=== PATIENT | female | born 1960 | race American Indian/Alaskan Native ===

== ENCOUNTER 2017-05-15 20:05 | Emergency (ER) | payer BC, OTHER ==
[2017-05-15 22:42] VITALS: BP 178/98
[2017-05-16] MEDS ORDERED: NORCO 5/325 PO ONE (03:35)
[2017-05-16] MEDS ORDERED: BOOSTRIX IM ONE (03:37)
--- NOTE | 2017-05-16 03:39 | Emergency Department Report ---
- General Chief Complaint: Wound/Laceration Stated Complaint: RIGHT MID FINGER LACERATION Time Seen by Provider: 05/16/17 03:27 Source: patient Mode of arrival: Ambulatory Limitations: No Limitations - History of Present Illness Initial Comments: 57-year-old -Wel[place] female with a past medical history of diabetes comes in today for a right finger cut. Patient reports that she fail and she thinks she cut her finger on a brick. Patient does not know when the last time she had a tetanus. Currently takes medication for diabetes has no known drug allergies. -: hour(s) (7) Time: 19:00 Extremity Location: Right: Hand (third finger) Place: home Patient Tetanus UTD: No Context: accidental Associated Symptoms: none Treatments Prior to Arrival: bandage - Related Data Home Medications Medication Instructions Recorded Confirmed Last Taken Amlodipine Besylate [Norvasc] 10 mg PO DAILY 02/08/15 02/08/15 02/07/15 Dapagliflozin Propanediol [Farxiga] 5 mg PO DAILY 02/08/15 02/08/15 02/07/15 Losartan/Hydrochlorothiazide 1 tab PO DAILY 02/08/15 02/08/15 02/07/15 [Hyzaar 100-25 TAB] Sulfamethoxazole/Trimethoprim 1 each PO BID 02/08/15 02/08/15 02/07/15 [Bactrim DS TAB] metFORMIN [Glucophage] 850 mg PO BID 02/08/15 02/08/15 02/07/15 Previous Rx's Medication Instructions Recorded Last Taken Type Ibuprofen [Motrin 800 MG tab] 800 mg PO Q8HR PRN #15 tablet 05/16/17 Unknown Rx Allergies Allergy/AdvReac Type Severity Reaction Status Date / Time No Known Allergies Allergy Verified 03/30/16 18:05 ED Review of Systems ROS: Stated complaint: RIGHT MID FINGER LACERATION Other details as noted in HPI Constitutional: denies: chills, fever Eyes: denies: eye pain, eye discharge, vision change ENT: denies: ear pain, throat pain Respiratory: denies: cough, shortness of breath, wheezing Cardiovascular: denies: chest pain, palpitations Endocrine: no symptoms reported Gastrointestinal: denies: abdominal pain, nausea, diarrhea Genitourinary: denies: urgency, dysuria, discharge Musculoskeletal: denies: back pain, joint swelling, arthralgia Skin: as per HPI, other (cut to right middle finger) Neurological: denies: headache, weakness, paresthesias Psychiatric: denies: anxiety, depression Hematological/Lymphatic: denies: easy bleeding, easy bruising ED Past Medical Hx - Past Medical History Hx Hypertension: Yes Hx Diabetes: Yes - Social History Smoking Status: Never Smoker Substance Use Type: None - Medications Home Medications: Home Medications Medication Instructions Recorded Confirmed Last Taken Type Amlodipine Besylate [Norvasc] 10 mg PO DAILY 02/08/15 02/08/15 02/07/15 History Dapagliflozin Propanediol [Farxiga] 5 mg PO DAILY 02/08/15 02/08/15 02/07/15 History Losartan/Hydrochlorothiazide 1 tab PO DAILY 02/08/15 02/08/15 02/07/15 History [Hyzaar 100-25 TAB] Sulfamethoxazole/Trimethoprim 1 each PO BID 02/08/15 02/08/15 02/07/15 History [Bactrim DS TAB] metFORMIN [Glucophage] 850 mg PO BID 02/08/15 02/08/15 02/07/15 History Ibuprofen [Motrin 800 MG tab] 800 mg PO Q8HR PRN #15 tablet 05/16/17 Unknown Rx ED Physical Exam - General Limitations: No Limitations ED Course Vital Signs 05/15/17 22:39 Temperature 98.1 F Pulse Rate 82 Respiratory 18 Rate Blood Pressure 178/98 O2 Sat by Pulse 98 Oximetry ED Medical Decision Making - Medical Decision Making Patient's been evaluated by this provider fast track. I discussed the patient that the cut will not require sutures. Discussed the patient that it is a flap very little connection to the blood supply. I discussed the patient will clean it off we will not cut the flap placed a Band-Aid. She can take pain medication and use Neosporin to the finger twice a day. Follow up with her primary care provider is symptoms persist or gets worse patient verbalized understanding. Critical care attestation.: If time is entered above; I have spent that time in minutes in the direct care of this critically ill patient, excluding procedure time. ED Disposition Clinical Impression: Cut of finger Disposition: DC-01 TO HOME OR SELFCARE Is pt being admited?: No Does the pt Need Aspirin: No Condition: Stable Additional Instructions: Please keep finger clean and dry. He can apply [id number] Neosporin twice a day. You can take ibuprofen for pain. Please follow up with her primary care provider if symptoms persist or gets worse. Prescriptions: Ibuprofen [Motrin 800 MG tab] 800 mg PO Q8HR PRN #15 tablet PRN Reason: Pain Referrals: PRIMARY CARE,MD [Primary Care Provider] - 3-5 Days Forms: Work/School Release Form(ED), Accompanied Note
[2017-05-16] MEDS ORDERED: MOTRIN PO ONE ×2 (04:00→04:16)
[2017-05-16] MEDS ORDERED: TRIPLE ANTIBIOTIC TP ONE ×2 (04:00→04:05)
== END 2017-05-16 04:15 | disposition home or self-care (01) ==
LOC: ED 20:05
DX: S61.212A Laceration without foreign body of right middle finger without damage to nail, initial encounter (principal); E11.9 Type 2 diabetes mellitus without complications; I10 Essential (primary) hypertension; W45.8XXA Other foreign body or object entering through skin, initial encounter; Y93.89 Activity, other specified; Y92.098 Other place in other non-institutional residence as the place of occurrence of the external cause; Y99.8 Other external cause status
CPT/HCPCS: 90471; 90715; 99282; A6250

== ENCOUNTER 2020-03-10 07:29 | Emergency (ER) | payer BC, OTHER ==
--- NOTE | 2020-03-10 08:12 | Event Note ---
ED Screening Note ED Screening Note: dm htn hld obese co r chest and r scapula pain pain not worse w movement small rash mid breast - does not appear to be herpetic in nature itching r scapular area- dark area of skin with no blisters no sob no fever or chills no acs hx bp elevated bg ordered - off her weekly insulin This initial assessment/diagnostic orders/clinical plan/treatment(s) is/are subject to change based on patients health status, clinical progression and re- assessment by fellow clinical providers in the ED. Further treatment and workup at subsequent clinical providers discretion. Patient/guardian urged not to elope from the ED as their condition may be serious if not clinically assessed and managed. Initial orders include: ro atypical acs presentation
--- NOTE | 2020-03-10 09:02 | XRay Report ---
XR chest routine 2V INDICATION / CLINICAL INFORMATION: chest pain. COMPARISON: None available. FINDINGS: SUPPORT DEVICES: None. HEART /PULMONARY VASCULATURE: No significant abnormality. LUNGS / PLEURA: No significant pulmonary or pleural abnormality. No pneumothorax. ADDITIONAL FINDINGS: No significant additional findings. IMPRESSION: 1. No acute findings. Signer Name: Tim Reyes MD Signed: 03/10/2020 8:58 AM Workstation Name: [id number]
[2020-03-10 09:03] LABS: Hematocrit 43.4 % (30.3-42.9); Hemoglobin 14.6 gm/dl (10.1-14.3); Mean Corpuscular HGB Conc 34 % (30-34); Mean Corpuscular Volume 87 fl (79-97); Platelet Count 267 K/mm3 (140-440); Red Blood Count 4.98 M/mm3 (3.65-5.03); Red Cell Distribution Width 13.1 % (13.2-15.2)
[2020-03-10 09:28] LABS: BUN/Creatinine Ratio 21; Blood Urea Nitrogen 19 mg/dL (7-17); Calcium 9.6 mg/dL (8.4-10.2); Hemolysis Index 25
--- NOTE | 2020-03-10 09:43 | Emergency Department Report ---
ED General Adult HPI - General Chief complaint: Back Pain/Injury Stated complaint: BACK PAIN PUI?: No Time Seen by Provider: 03/10/20 08:06 Source: patient, RN notes reviewed Mode of arrival: Ambulatory Limitations: No Limitations - History of Present Illness Initial comments: The patient was evaluated in the emergency department for symptoms described in the history of present illness. He/she was evaluated in the context of the global COVID-19 pandemic, which necessitated consideration that the patient might be at risk for infection with the virus that causes COVID-19. Institutional protocols and algorithms that pertain to the evaluation of patients at risk for COVID-19 are in a state of rapid change based on informat ion released by regulatory bodies including the CDC and federal and state organizations. These policies and algorithms were followed during the patient's care in the emergency department. Please note that these policies, procedures and recommendations changed on a rapid basis. During the history and physical examination, I am chaperoned by Anayeli Amor Patient is a 60-year-old female. She is not known to myself previously. She is right-hand dominant, with a history of hypertension, diabetes, and obesity. She has no personal or family history of DVT, pulmonary embolism, or ischemic heart disease. She presents to the ER today with a complaint of nontraumatic right-sided posterior scapular pain, present for the past few days. This pain does not radiate anywhere. it does not have exacerbating or relieving factors. Minimal improvement with rufd-jqn-funalxn analgesics. Patient also describes nontraumatic right-sided chest wall and breast pain. This pain has been present for the past few days. It does not radiate anywhere. There is no vomiting, diaphoresis or exertional shortness of breath. The patient denies travel, surgery, DVT, pulmonary embolism risk factors, oral contraceptive use. Patient also describes intermittent erythematous/red rash to her right Medial superior breast. This is new. This has been present for a few days. No oral discomfort, vaginal discomfort, rectal discomfort, no other skin lesions or skin rashes, although she thinks that previously, she had some "red spots" on her back. Patient states that she is not , and denies indwelling tampon. -: Gradual, days(s) Location: chest, back, right Radiation: non-radiation Severity scale (0 -10): 7 Quality: aching Consistency: intermittent Improves with: none Worsens with: none Associated Symptoms: denies other symptoms - Related Data Home Medications Medication Instructions Recorded Confirmed Last Taken Amlodipine Besylate [Norvasc] 10 mg PO DAILY 02/08/15 02/08/15 02/07/15 Dapagliflozin Propanediol [Farxiga] 5 mg PO DAILY 02/08/15 02/08/15 02/07/15 Losartan/Hydrochlorothiazide 1 tab PO DAILY 02/08/15 02/08/15 02/07/15 [Hyzaar 100-25 TAB] Sulfamethoxazole/Trimethoprim 1 each PO BID 02/08/15 02/08/15 02/07/15 [Bactrim DS TAB] metFORMIN [Glucophage] 850 mg PO BID 02/08/15 02/08/15 02/07/15 Previous Rx's Medication Instructions Recorded Last Taken Type Ibuprofen [Motrin 800 MG tab] 800 mg PO Q8HR PRN #15 tablet 05/16/17 Unknown Rx Aspirin [Aspirin BABY CHEW TAB] 81 mg PO QDAY #30 tab.chew 03/10/20 Unknown Rx Allergies Allergy/AdvReac Type Severity Reaction Status Date / Time Penicillins Allergy Hives Verified 03/10/20 07:37 ED Review of Systems ROS: Stated complaint: BACK PAIN Other details as noted in HPI Constitutional: denies: fever Eyes: denies: eye discharge ENT: denies: epistaxis Respiratory: denies: cough, shortness of breath Cardiovascular: chest pain Gastrointestinal: denies: abdominal pain, nausea, vomiting, hematemesis, melena, hematochezia Genitourinary: denies: urgency, dysuria Musculoskeletal: back pain Skin: rash, lesions Hematological/Lymphatic: denies: easy bleeding ED Past Medical Hx - Past Medical History Hx Hypertension: Yes Hx Diabetes: Yes - Surgical History Past Surgical History?: No - Social History Smoking Status: Never Smoker Substance Use Type: None - Medications Home Medications: Home Medications Medication Instructions Recorded Confirmed Last Taken Type Amlodipine Besylate [Norvasc] 10 mg PO DAILY 02/08/15 02/08/15 02/07/15 History Dapagliflozin Propanediol [Farxiga] 5 mg PO DAILY 02/08/15 02/08/15 02/07/15 History Losartan/Hydrochlorothiazide 1 tab PO DAILY 02/08/15 02/08/15 02/07/15 History [Hyzaar 100-25 TAB] Sulfamethoxazole/Trimethoprim 1 each PO BID 02/08/15 02/08/15 02/07/15 History [Bactrim DS TAB] metFORMIN [Glucophage] 850 mg PO BID 02/08/15 02/08/15 02/07/15 History Ibuprofen [Motrin 800 MG tab] 800 mg PO Q8HR PRN #15 tablet 05/16/17 Unknown Rx Aspirin [Aspirin BABY CHEW TAB] 81 mg PO QDAY #30 tab.chew 03/10/20 Unknown Rx ED Physical Exam - General Limitations: No Limitations General appearance: alert, in no apparent distress, obese - Head Head exam: Present: atraumatic, normocephalic - Eye Eye exam: Present: normal appearance, EOMI - ENT ENT exam: Present: normal exam, normal orophraynx, mucous membranes moist, normal external ear exam - Neck Neck exam: Present: normal inspection, full ROM. Absent: tenderness, meningismus - Respiratory Respiratory exam: Present: normal lung sounds bilaterally. Absent: respiratory distress, wheezes, rales, rhonchi, stridor, chest wall tenderness - Cardiovascular Cardiovascular Exam: Present: regular rate, normal rhythm, normal heart sounds. Absent: bradycardia, tachycardia, irregular rhythm, systolic murmur, diastolic murmur, rubs, gallop - GI/Abdominal GI/Abdominal exam: Present: soft, normal bowel sounds. Absent: distended, tenderness, guarding, rebound, rigid, pulsatile mass - Extremities Exam Extremities exam: Present: normal inspection, full ROM, other (2+ pulses noted in the bilateral upper and lower extremities. There is no palpable cord. negative Homans sign. Muscular compartments are soft. The pelvis is stable.). Absent: pedal edema, calf tenderness - Back Exam Back exam: Present: normal inspection, full ROM. Absent: tenderness, CVA tenderness (R), CVA tenderness (L), paraspinal tenderness, vertebral tenderness - Neurological Exam Neurological exam: Present: alert, oriented X3, normal gait, other (No facial droop. Tongue midline. Extraocular movements intact bilaterally. Facial sensation intact to light touch in V1, V2, V3 distribution bilaterally. 5 and a 5 strength in 4 extremities. Sensation intact to light touch in 4 extremities.). Absent: motor sensory deficit - Psychiatric Psychiatric exam: Present: normal affect, normal mood - Skin Skin exam: Present: warm, dry, intact, rash (On the right superior medial quadrant of the breast, nontender macules and papules noted. No pus or streaking. No vesicles noted.) ED Course Vital Signs 03/10/20 03/10/20 03/10/20 07:39 11:02 13:55 Temperature 98.3 F Pulse Rate 83 61 Respiratory 20 17 Rate Blood Pressure 178/104 Blood Pressure 188/101 165/85 [Right] O2 Sat by Pulse 100 98 Oximetry - Reevaluation(s) Reevaluation #1: 03/10/20 10:55 Differential diagnosis, including but not limited to: GERD, gastritis, hiatal hernia, pneumonia, pulmonary embolism, coronary artery disease, musculoskeletal pain, nonspecific rash Assessment and plan: 60-year-old female, who is not currently tachycardic, tachypneic or hypoxic, who denies DVT and pulmonary embolism risk factors, low risk by Wells criteria, with a primary complaint of nontraumatic right posterior scapular pain, intermittent right chest pain. Troponin negative x1. Symptoms present for a few days. Acute myocardial infarction is ruled out as per the [employer] clinical policy, which indicates that acute HI may be ruled out with 1 set of troponins/cardiac enzymes if symptoms present for greater than 8 hours. However, we will send D-dimer to risk ratified patient further for pulmonary embolism, given complaint of right-sided scapular pain and chest pain. The p atient's heart score is reviewed and appreciated. However, she was seen in consultation with cardiology, who have recommended discharge with close outpatient follow-up in their group, to complete a cardiac risk ratification. Patient has equal pulses in the upper and lower extremities, with no pulsatile abdominal mass, mediastinum unremarkable on x-ray of the chest, blood pressure improved, therefore, aortic disease unlikely. Rash nonspecific, does not appear to be consistent with infectious pathology, patient denies mucosal involvement, she can take mggg-[id number]-[id number] topical steroids, and follow-up with an outpatient associate merchandiser for this. We are awaiting repeat EKG, and repeat laboratory studies. 03/10/20 10:56 - Consultations Consultation #1: 03/10/20 10:54 Patient seen and evaluated by cardiology, Dr. Baires. We have also discussed the patient's history, physical, pertinent laboratory studies, imaging findings and EKG, which he has also personally evaluated. Cardiology in agreement with pulmonary embolism risk ratification, recommend repeat troponin, if negative as anticipated, they recommend discharge with outpatient follow-up to complete cardiac risk ratification. Patient's elevated heart score is reviewed and appreciated. ED Medical Decision Making - Lab Data Result diagrams: 03/10/20 08:53 03/10/20 08:53 Vital Signs 03/10/20 07:39 Temperature 98.3 F Pulse Rate 83 Respiratory 20 Rate Blood Pressure 188/101 [Right] O2 Sat by Pulse 100 Oximetry Lab Results 03/10/20 03/10/20 Range/Units 08:53 08:53 WBC 6.4 (4.5-11.0) K/mm3 RBC 4.98 (3.65-5.03) M/mm3 Hgb 14.6 H (10.1-14.3) gm/dl Hct 43.4 H (30.3-42.9) % MCV 87 (79-97) fl MCH 29 (28-32) pg MCHC 34 (30-34) % RDW 13.1 L (13.2-15.2) % Plt Count 267 (140-440) K/mm3 Sodium 137 (137-145) mmol/L Potassium 4.2 (3.6-5.0) mmol/L Chloride 102.1 (98-107) mmol/L Carbon Dioxide 30 (22-30) mmol/L Anion Gap 9 mmol/L BUN 19 H (7-17) mg/dL Creatinine 0.9 (0.6-1.2) mg/dL Estimated GFR > 60 ml/min BUN/Creatinine Ratio 21 % Glucose 179 H (65-100) mg/dL Calcium 9.6 (8.4-10.2) mg/dL Troponin T < 0.010 (0.00-0.029) ng/mL - EKG Data -: EKG Interpreted by [facility] EKG shows normal: sinus rhythm Rate: normal - EKG Data 03/10/20 10:54 Sinus rhythm, 68 bpm. Normal axis, QTC 453 ms. Left ventricular hypertrophy. Flattened T waves in the lateral leads. Abnormal EKG, low voltage, not a STEMI - Radiology Data Radiology results: pending, report reviewed, image reviewed XR chest routine 2V INDICATION / CLINICAL INFORMATION: chest pain. COMPARISON: None available. FINDINGS: SUPPORT DEVICES: None. HEART /PULMONARY VASCULATURE: No significant abnormality. LUNGS / PLEURA: No significant pulmonary or pleural abnormality. No pneumothorax. ADDITIONAL FINDINGS: No significant additional findings. IMPRESSION: 1. No acute findings. Signer Name: Tim Reyes MD Signed: 03/10/2020 7:58 AM Workstation Name: [email or web address] Critical care attestation.: If time is entered above; I have spent that time in minutes in the direct care of this critically ill patient, excluding procedure time. ED Disposition Clinical Impression: Right shoulder pain, Rash, Right-sided chest pain, Elevated blood pressure reading Disposition: TO HOME OR SELFCARE Is pt being admited?: No Does the pt Need Aspirin: No Condition: Stable Instructions: Shoulder Pain, Nonspecific Chest Pain, Adult, Hypertension, Adult, Rash, Adult, [id number], Chest Pain (ED) Additional Instructions: Patient may take rabt-nex-ietfkll acetaminophen, 650 mg by mouth, with food, every 4-6 hours as needed for pain, maximum daily dose to not exceed 3 g per 24 hours. Patient may alternate this with ibuprofen, 400 mg by mouth, every 6 hours as needed for pain. Please do not eat any food after midnight. Please consume no caffeine until after test tomorrow. Patient is okay to take her regular blood pressure medications. Please follow-up with the outpatient gear milling machine set up operator as scheduled. Please take aspirin as directed. Please follow-up with your primary care doctor or gear milling machine set up operator within the next month for elevated blood pressure. Avoid heavy lifting, participate in activities as tolerated, alternate ice packs, and heat packs as needed for chest discomfort and right shoulder discomfort. Patient may also participate in range of motion activities. Patient may follow-up with her primary care doctor, or associate merchandiser within the next month for nonspecific breast rash. Patient may attempt/try gejl-uay-cyevvck hydrocortisone ointment and cream. Please return to the emergency room right away with new pain, worsened pain, migration of pain, projectile vomiting, change in mental status, confusion, inability to tolerate liquid feeds, new, worsened or different symptoms not present on the initial emergency room evaluation. Patient is scheduled for cardiology follow-up, tomorrow, March 11, 10:00 AM, at the [facility]. Prescriptions: Aspirin [Aspirin BABY CHEW TAB] 81 mg PO QDAY #30 tab.chew Referrals: BALDEMAR TREVINO MD [Primary Care Provider] - 3-5 Days RENALDO BAIRES MD [Staff Physician] - 03/11/20 10:00 am Heart Score - HEART Score History: Slightly suspicious EKG: Non-specific Age: 45-65 Risk factors: > 3 risk factors or hx of atherosclerotic disease Troponin: < normal limit HEART Score: 4 - Critical Actions Critical Actions: 4-6 pts:12-16.6% risk of adverse cardiac event. Should be admitted
[2020-03-10] MEDS ORDERED: KETOROLAC 30 MG/1 ML INJ IM ONE (09:56)
[2020-03-10] MEDS ORDERED: ACETAMINOPHEN 500 MG TAB PO ONE (09:56)
[2020-03-10] MEDS ORDERED: LOSARTAN PO STA (10:58)
[2020-03-10] MEDS ORDERED: NON-FORMULARY EACH (Amlodipine Besylate [Norvasc] 2.5 MG Tablet) PO STA (10:58)
[2020-03-10] MEDS ORDERED: HYDROCHLOROTHIAZIDE PO STA (10:58)
[2020-03-10] MEDS ORDERED: LOSARTAN 50 MG TAB PO STA (11:07)
[2020-03-10] MEDS ORDERED: hydroCHLOROthiazide 25 MG TAB PO STA (11:07)
[2020-03-10] MEDS ORDERED: amLODIPine 10 MG TAB PO STA (11:07)
--- NOTE | 2020-03-10 11:13 | Consultation ---
History of Present Illness Consult date: 03/10/20 Requesting physician: REI FANG Consult reason: chest pain History of present illness: The patient is a 60-year-old female with a past medical history of HTN, DM, HLP, obesity. She is previously unknown to our practice. She presented with c/o right-sided posterior scapular pain and right-sided chest pain for several days prior to arrival. Pt describes her chest pain as an intermittent, nonexertional, nonradiating "bubbling" discomfort on the right side of her chest. Of note, she developed a skin rash over the right side of her chest several days ago and originally thought that her chest discomfort was secondary to the skin rash. She denies any SOB, palpitations, n/v, diaphoresis, dizziness or syncope. She denies any known prior cardiac issues or cardiac w/u. She does regularly see a PCP. Past History Past Medical History: diabetes, hypertension, hyperlipidemia Social history: denies: smoking, alcohol abuse, prescription drug abuse Medications and Allergies Allergies Allergy/AdvReac Type Severity Reaction Status Date / Time Penicillins Allergy Hives Verified 03/10/20 07:37 Home Medications Medication Instructions Recorded Confirmed Last Taken Type Amlodipine Besylate [Norvasc] 10 mg PO DAILY 02/08/15 02/08/15 02/07/15 History Dapagliflozin Propanediol [Farxiga] 5 mg PO DAILY 02/08/15 02/08/15 02/07/15 History Losartan/Hydrochlorothiazide 1 tab PO DAILY 02/08/15 02/08/15 02/07/15 History [Hyzaar 100-25 TAB] Sulfamethoxazole/Trimethoprim 1 each PO BID 02/08/15 02/08/15 02/07/15 History [Bactrim DS TAB] metFORMIN [Glucophage] 850 mg PO BID 02/08/15 02/08/15 02/07/15 History Ibuprofen [Motrin 800 MG tab] 800 mg PO Q8HR PRN #15 tablet 05/16/17 Unknown Rx Aspirin [Aspirin BABY CHEW TAB] 81 mg PO QDAY #30 tab.chew 03/10/20 Unknown Rx Active Meds: Active Medications Miscellaneous Medication (Amlodipine Besylate [Norvasc]) 10 mg PO NOW STA Stop: 03/10/20 10:59 Miscellaneous Medication (Losartan/Hydrochlorothiazide [Hyzaar 100-25 Tab]) 1 tab PO NOW STA Stop: 03/10/20 10:59 Review of Systems Constitutional: no weight loss, no weight gain, no fever, no chills, no sweats Ears, nose, mouth and throat: no ear pain, no nose pain, no sinus pressure, no sinus pain Cardiovascular: chest pain, high blood pressure, no orthopnea, no palpitations, no rapid/irregular heart beat, no edema, no syncope, no lightheadedness, no shortness of breath, no dyspnea on exertion, no leg edema, no decreased exercise tolerance Respiratory: no cough, no shortness of breath, no dyspnea on exertion, no congestion, no wheezing, no pain on inspiration Gastrointestinal: no abdominal pain, no nausea, no vomiting, no diarrhea, no constipation, no change in bowel habits Genitourinary Female: no pelvic pain, no flank pain, no dysuria, no urinary frequency, no urgency Musculoskeletal: no neck stiffness, no neck pain, no shooting arm pain, no arm numbness/tingling, no low back pain, no shooting leg pain Integumentary: no rash, no pruritis, no redness, no sores, no wounds Neurological: no head injury, no paralysis, no weakness, no parathesias, no numbness, no tingling, no seizures, no syncope Psychiatric: no anxiety Endocrine: no cold intolerance, no heat intolerance Hematologic/Lymphatic: no easy bruising Allergic/Immunologic: no urticaria Physical Examination Vital Signs Temp Pulse Resp BP Pulse Ox 98.3 F 83 20 188/101 100 03/10/20 07:39 03/10/20 07:39 03/10/20 07:39 03/10/20 07:39 03/10/20 07:39 General appearance: no acute distress HEENT: Positive: PERRL, Normocephaly, Mucus Membranes Moist Neck: Positive: neck supple, trachea midline Cardiac: Positive: Reg Rate and Rhythm, S1/S2 Lungs: Positive: Decreased Breath Sounds Neuro: Positive: Grossly Intact Abdomen: Negative: Tender Skin: Negative: Rash Musculoskeletal: No Pain Extremities: Absent: edema Results 03/10/20 08:53 03/10/20 08:53 CBC 03/10/20 Range/Units 08:53 WBC 6.4 (4.5-11.0) K/mm3 RBC 4.98 (3.65-5.03) M/mm3 Hgb 14.6 H (10.1-14.3) gm/dl Hct 43.4 H (30.3-42.9) % Plt Count 267 (140-440) K/mm3 Comprehensive Metabolic Panel 03/10/20 Range/Units 08:53 Sodium 137 (137-145) mmol/L Potassium 4.2 (3.6-5.0) mmol/L Chloride 102.1 (98-107) mmol/L Carbon Dioxide 30 (22-30) mmol/L BUN 19 H (7-17) mg/dL Creatinine 0.9 (0.6-1.2) mg/dL Glucose 179 H (65-100) mg/dL Calcium 9.6 (8.4-10.2) mg/dL - Imaging and Cardiology EKG: report reviewed, image reviewed EKG interpretations - Telemetry EKG Rhythm: Sinus Rhythm - EKG Sinus rhythms and dysrhythmias: sinus rhythm Assessment and Plan Chest pain appears atypical. ECG with NSR, NAF. Btete are negative for AMI x 2 sets. DDimer is WNL. Currently stable cardiac status. Pt may discharge from cardiology standpoint and will schedule for OP stress testing and f/u in our office. Recommend initiation of ASA 81 today. Follow up in our [place] office for lexiscan MPI stress test and echo tomorrow, 03/11/2020 @ 10:00AM. The patient has been seen in conjunction with Dr. Robbie Powell who agrees with the assessment and plan of care. - Patient Problems (1) Atypical chest pain Current Visit: Yes Status: Acute (2) Accelerated hypertension Current Visit: Yes Status: Acute (3) Rash Current Visit: Yes Status: Acute (4) Diabetes Current Visit: Yes Status: Chronic (5) Hyperlipidemia Current Visit: Yes Status: Chronic
[2020-03-10] MEDS ORDERED: oxyCODONE 5 MG TAB PO ONE (12:45)
[2020-03-10] MEDS ORDERED: hydroCHLOROthiazide 25 MG TAB PO ONE (13:48)
[2020-03-10] MEDS ORDERED: LOSARTAN 50 MG TAB PO ONE (13:48)
[2020-03-10 13:57] VITALS: BP 178/104
== END 2020-03-10 14:02 | disposition home or self-care (01) ==
LOC: ED 07:29
DX: M25.511 Pain in right shoulder (principal); R21 Rash and other nonspecific skin eruption; R07.89 Other chest pain; I10 Essential (primary) hypertension; E11.9 Type 2 diabetes mellitus without complications; Z79.84 Long term (current) use of oral hypoglycemic drugs; Z79.1 Long term (current) use of non-steroidal anti-inflammatories (NSAID); Z79.899 Other long term (current) drug therapy; Z88.0 Allergy status to penicillin
CPT/HCPCS: 36415; 71046; 80048; 82550; 82962; 83735; 84484; 85027; 85379; 96372; 99284; J1885